=== PATIENT | female | born 1955 | race Caucasian/White ===

== ENCOUNTER → 2018-12-25 | Outpatient (CLI) | payer OTHER ==
[~2018-12-25] MED LIST: ACCUNEB 0.0.63 MG/3 INH; ACCUNEB 0.1.25 MG/3 NEB; ACETAMINOPHEN500 MG PO; ACTOS45 MG PO; ANAPROX DS550 MG PO; CARBAMAZEPINE200 M2 PO; COZAAR50 MG PO; CYCLOBENZAPRINE10 MG PO; DIABETA5 MG PO; DIFLUCAN200 MG PO; ENALAPRIL10 MG PO; GUAIFENESIN600 MG PO; Lopressor25 MG PO; METFORMIN1000 MG PO; NAPROSYN500 MG PO; NEXIUM40 MG PO; NYSTATIN CREAM15 GM T; SIMVASTATIN20 MG PO; TRADJENTA PO; TRICOR145 MG PO; VITAMIN B11000 MCG/M IM; VITAMIN B12500 MCG PO
== END | disposition home or self-care (01) ==
LOC: CT 10:23
DX: R59.0 Localized enlarged lymph nodes (principal); R07.89 Other chest pain

== ENCOUNTER 2019-03-31 14:37 | Emergency (ER) | payer OTHER ==
[~2019-03-31] VITALS: Ht 172.7 cm; Wt 81.6 kg
[2019-03-31 14:39] VITALS: BP 131/68
[2019-03-31] MEDS ORDERED: ZITHROMAX250 MG PO (16:28)
[2019-03-31] MEDS ORDERED: TESSALON PERLE100 M1 PO (16:28)
== END 2019-03-31 16:57 | disposition home or self-care (01) ==
LOC: ED 14:37
DX: J06.9 Acute upper respiratory infection, unspecified (principal); K21.9 Gastro-esophageal reflux disease without esophagitis; I10 Essential (primary) hypertension; E11.9 Type 2 diabetes mellitus without complications; E78.00 Pure hypercholesterolemia, unspecified; Z88.8 Allergy status to other drugs, medicaments and biological substances; Z79.899 Other long term (current) drug therapy

== ENCOUNTER → 2021-01-27 | Outpatient (CLI) | payer OTHER ==
[~2021-01-27] MED LIST changes: +TESSALON PERLE100 M1 PO; +ZITHROMAX250 MG PO
[2021-01-27 12:53] LABS: BILIRUBIN Negative (Negative); BLOOD 2+ (Negative); CLARITY Cloudy (Clear); COLOR Yellow (Yellow); GLUCOSE 1+ (Negative); KETONE Trace (Negative); LEUKO ESTERASE 2+ (Negative); NITRITE Negative (Negative); SPECIFIC GRAVITY >= 1.030 (1.001-1.030)
[2021-01-27 13:15] LABS: RBC 31-40 rbc/hpf (0-2); WBC 16-20 wbc/hpf (0-5)
[2021-01-27 13:16] LABS: BACTERIA 3+; CALCIUM OXALATE CRYSTALS 3+
[2021-01-27 13:27] LABS: ALBUMIN 3.6 gm/dl (3.1-4.5); ALKALINE PHOSPHATASE 103 U/L (45-117); BUN 27 mg/dl (7-24); CHLORIDE 106 mmol/L (98-107); CHOLESTEROL 228 mg/dL (<200); CREATININE 0.71 mg/dL (0.55-1.02); LDL CHOLESTEROL 128 mg/dL (9-159); POTASSIUM 4.4 mmol/L (3.5-5.1); SGOT/AST 17 IU/L (3-35); SGPT/ALT 24 U/L (12-78); SODIUM 140 mmol/L (136-145); TOTAL PROTEIN 8.6 gm/dL (6.4-8.2); TRIGLYCERIDES 196 mg/dl (<150)
== END | disposition home or self-care (01) ==
LOC: LAB 12:02
PROVIDERS: ATTEND Internal Medicine
DX: E78.5 Hyperlipidemia, unspecified (principal); E11.65 Type 2 diabetes mellitus with hyperglycemia; E55.9 Vitamin D deficiency, unspecified

== ENCOUNTER → 2022-09-07 | Outpatient (CLI) | payer OTHER, MEDICAID | END | disposition home or self-care (01) | LOC: US 08-16 15:00 | PROVIDERS: ATTEND Internal Medicine | DX: E04.1 Nontoxic single thyroid nodule (principal); M79.89 Other specified soft tissue disorders ==

== ENCOUNTER → 2022-09-21 | Outpatient (CLI) | payer OTHER, MEDICAID | END | disposition home or self-care (01) | LOC: US 00:49 | PROVIDERS: ATTEND Internal Medicine | DX: E04.2 Nontoxic multinodular goiter (principal) ==

== ENCOUNTER → 2023-02-02 | Outpatient (CLI) | payer OTHER, MEDICAID ==
[2023-02-02 11:04] LABS: BILIRUBIN Negative (Negative); BLOOD 3+ (Negative); CLARITY Cloudy (Clear); COLOR Dark Yellow (Yellow); GLUCOSE 3+ (Negative); KETONE Trace (Negative); LEUKO ESTERASE 1+ (Negative); NITRITE Negative (Negative); SPECIFIC GRAVITY >= 1.030 (1.001-1.030)
[2023-02-02 11:12] LABS: ALKALINE PHOSPHATASE 99 U/L (46-116); BUN 13 mg/dl (9-23); CHLORIDE 104 mmol/L (98-107); CHOLESTEROL 248 mg/dL (<200); LDL CHOLESTEROL 160 mg/dL (9-159); SGPT/ALT 14 U/L (5-49); TOTAL PROTEIN 7.3 gm/dL (6.0-8.0); TRIGLYCERIDES 170 mg/dl (<150)
[2023-02-02 11:17] LABS: RBC TNTC rbc/hpf (0-2); WBC 21-30 wbc/hpf (0-5)
[2023-02-02 11:18] LABS: BACTERIA 2+
== END | disposition home or self-care (01) ==
LOC: LAB 10:08
PROVIDERS: ATTEND Internal Medicine
DX: E11.9 Type 2 diabetes mellitus without complications (principal); E55.9 Vitamin D deficiency, unspecified; E78.5 Hyperlipidemia, unspecified; E04.9 Nontoxic goiter, unspecified